=== PATIENT | female | born 1980 | race Caucasian/White ===

== ENCOUNTER 2022-12-28 12:20 | Day surgery (SDC) | payer BC ==
[2022-12-27 14:13] VITALS: BMI 37.1
--- NOTE | 2022-12-28 08:03 | P.GSHP ---
History of Present Illness H&P Date: 12/28/22 CHIEF COMPLAINT: Cholecystitis HISTORY OF PRESENT ILLNESS: The patient is a 42-year-old female who presents with history of epigastric including right upper quadrant abdominal pain. She underwent diagnostic studies for her gallbladder. Separately her clinical picture was consistent with cholecystitis. Now she presents for surgical intervention. PAST MEDICAL HISTORY: Please see list PAST SURGICAL HISTORY: Please see list MEDICATIONS: Please see list ALLERGIES: Please see list SOCIAL HISTORY: Please see list FAMILY HISTORY: Please see list REVIEW OF ORGAN SYSTEMS: CONSTITUTIONAL: No reports of fevers or chills. HEENT: Denies any troubles with the vision or hearing. ENDOCRINE: No reports of hypothyroidism. No diabetes. RESPIRATORY: No recent pneumonias. CARDIOVASCULAR: Denies chest pain or palpitations GI: No blood in stools or constipation. MUSCULOSKELETAL: Has occasional joint pain including back pain. NEURO: No seizure disorders or headaches. No recent stroke. PSYCH: No depression or suicidal ideation. GENITOURINARY: No active blood in urine. No urinary hesitancy. HEMATOLOGIC: No personal or family history of DVTs or pulmonary emboli. SKIN: No skin cancer. PHYSICAL EXAM: VITAL SIGNS: Afebrile vital signs stable GENERAL: Well-developed pleasant in no acute distress. HEENT: No scleral icterus. Extraocular movements grossly intact. Moist buccal mucosa. NECK: Supple without lymphadenopathy. CHEST: Unlabored respirations. Equal bilateral excursions. CARDIOVASCULAR: Regular rate regular rhythm rhythm. Distal 2+ pulses. ABDOMEN: Soft, nondistended. Tender along the epigastrium and right upper quadrant. MUSCULOSKELETAL: No clubbing, cyanosis, or edema. NEURO: Cranial nerves II to XII within normal limits. No focal or lateralizing signs. PSYCH: Alert and oriented to person, place and time. SKIN: Well-perfused good skin turgor. ASSESSMENT: 1. Epigastric and right upper quadrant abdominal pain 2. Chronic cholecystitis 3. Symptomatic gallstones. PLAN: 1. Will need a robotic cholecystectomy possible open. Benefits and risks were described. 2. Heparin for DVT prophylaxis 5000 units. 3. Antibiotic prophylaxis. 4. CBC and CMP on day of procedure 5. Non-narcotic pre and post op pain management reviewed. 6. Indocyanine green for biliary imaging. Past Medical History Past Medical History: Diabetes Mellitus, Hypertension Additional Past Medical History / Comment(s): rt abd pain and bloating,n/v frequently History of Any Multi-Drug Resistant Organisms: None Reported Past Surgical History: Hernia Repair Additional Past Surgical History / Comment(s): umbilical hernia repair Past Anesthesia/Blood Transfusion Reactions: No Reported Reaction Additional Past Anesthesia/Blood Transfusion Reaction / Comment(s): no hx blood transfusion Smoking Status: Current every day smoker - Past Family History Mother Family Medical History: No Reported History Father Family Medical History: Cancer Additional Family Medical History / Comment(s): lung Medications and Allergies Home Medications Medication Instructions Recorded Confirmed Type Dapagliflozin Propanediol [Farxiga] 10 mg PO DAILY 12/27/22 12/27/22 History Ibuprofen 800 mg PO Q8H PRN 12/27/22 12/27/22 History Insulin NPH Hum/Reg Insulin Hm 45 units SQ BID 12/27/22 12/27/22 History [Novolin 70-30 Flexpen] hydroCHLOROthiazide 12.5 mg PO DAILY 12/27/22 12/27/22 History Allergies Allergy/AdvReac Type Severity Reaction Status Date / Time Penicillins Allergy Anaphylaxis Verified 12/27/22 14:04
[~2022-12-28 12:20] MED LIST: ACETAMINOPHEN TAB 500 MG TAB PO PRN; HEPARIN SODIUM,PORCINE/PF 5,000 UNIT/0.5 ML SYRINGE SQ PRN; HYDROmorphone 0.5 MG/0.5 ML SYRINGE IVP PRN; LACTATED RINGERS 1,000 ML IV SCH; MIDAZOLAM 2 MG/2 ML VIAL IV PRN; ONDANSETRON 4 MG/2 ML VIAL IVP PRN; SCOPOLAMINE 1 MG/72 HR PATCH TRANSDERM SCH
[2022-12-28 12:58] LABS: Glucose,Whole Blood 115 mg/dL (70-110)
[2022-12-28 13:04] LABS: Basophils # (A) 0.1 k/uL (0-0.2); Basophils % (A) 1 %; Eosinophils # (A) 0.3 k/uL (0-0.7); Eosinophils % (A) 2 %; HCT 38.4 % (34.0-46.0); HGB 12.5 gm/dL (11.4-16.0); Lymphocytes # (A) 2.9 k/uL (1.0-4.8); Lymphocytes % (A) 28 %; MCH 27.7 pg (25.0-35.0); MCHC 32.5 g/dL (31.0-37.0); MCV 85.3 fL (80.0-100.0); Mean Platelet Volume 7.1; Monocytes # (A) 0.4 k/uL (0-1.0); Monocytes % (A) 4 %; Neutrophils # (A) 6.8 k/uL (1.3-7.7); Neutrophils % (A) 65 %; Platelet Count 556 k/uL (150-450); RDW 13.7 % (11.5-15.5); WBC 10.5 k/uL (3.8-10.6)
[2022-12-28] MEDS ORDERED: DEXAMETHASONE SOD PHOSPHATE 4 MG/ML 1 ML VIAL IVP ONE (13:12)
[2022-12-28 13:14] LABS: Prothrombin Time 10.1 sec (9.0-12.0)
[2022-12-28 13:36] LABS: ALT 24 U/L (4-34); AST 22 U/L (14-36); African American GFR (CKD) >90 (>60 ml/min/1.73 sqM); Albumin 4.4 g/dL (3.5-5.0); Alkaline Phosphatase 73 U/L (38-126); Anion Gap 9 mmol/L; Blood Urea Nitrogen 24 mg/dL (7-17); Carbon Dioxide 25 mmol/L (22-30); Chloride 106 mmol/L (98-107); Glucose 112 mg/dL (74-99); Non-African American GFR(CKD) 90 (>60 ml/min/1.73 sqM); Potassium 4.3 mmol/L (3.5-5.1); Sodium 140 mmol/L (137-145); Total Bilirubin 0.7 mg/dL (0.2-1.3); Total Protein 7.6 g/dL (6.3-8.2)
[2022-12-28] MEDS ORDERED: fentaNYL (PF) 50 MCG/ML 2 ML AMP ONE (14:27)
[2022-12-28] MEDS ORDERED: ROCURONIUM 10 MG/ML (5 ML VIAL) IV ONE (14:27)
[2022-12-28] MEDS ORDERED: GLYCOPYRROLATE 0.2 MG/ML 2 ML VIAL ONE (14:27)
[2022-12-28] MEDS ORDERED: HYDROmorphone (PF) 1 MG/ML ONE (14:27)
[2022-12-28] MEDS ORDERED: LIDOCAINE 2% INJ 20 MG/ML (2 ML VIAL) ONE (14:27)
[2022-12-28] MEDS ORDERED: SUCCINYLCHOLINE CHLORIDE 200 MG/10 ML VIAL IV ONE (14:27)
[2022-12-28] MEDS ORDERED: INDOCYANINE GREEN 25 MG VIAL IV ONE (14:27)
[2022-12-28] MEDS ORDERED: NEOSTIGMINE 1 MG/ML 10 ML VIAL ONE (14:27)
[2022-12-28] MEDS ORDERED: MIDAZOLAM 2 MG/2 ML VIAL ONE (14:27)
[2022-12-28] MEDS ORDERED: PROPOFOL 10 MG/ML 20 ML VIAL IV ONE (14:27)
[2022-12-28] MEDS ORDERED: LIDOCAINE 2%-EPI 1:100,000 20 ML VIAL SQ ONE (15:08)
[2022-12-28] MEDS ORDERED: LACTATED RINGERS 1,000 ML IV ONE (16:40)
[2022-12-28 16:47] VITALS: TEMP 97.1
[2022-12-28] MEDS ORDERED: oxyCODONE-APAP 7.5-325MG 1 EACH TAB PO PRN (16:51)
[2022-12-28 16:59] LABS: Glucose,Whole Blood 233 mg/dL (70-110)
--- NOTE | 2022-12-28 17:02 | P.OP ---
Date of Procedure: 12/28/22 Description of Procedure: SURGEON: EDIE WHITE MD PREOPERATIVE DIAGNOSES: 1. Symptomatic gallstones 2. Right upper quadrant abdominal pain 3. Diabetes type 2, insulin-dependent 4. Morbid obesity due to excess calories, BMI 36.2 5. Hypertensive heart disease 6. Abnormal EKG POSTOPERATIVE DIAGNOSES: 1. Acute on chronic cholecystitis due to cystic duct obstruction 2. Right upper quadrant abdominal pain 3. Diabetes type 2, insulin-dependent 4. Morbid obesity due to excess calories, BMI 36.2 5. Hypertensive heart disease 6. Symptomatic gallstones 7. Pericholecystic peritoneal adhesions 8. Fatty liver disease with hepatomegaly OPERATION: 1. Robotic-assisted da Almita Xi laparoscopic lysis of adhesions over 30 minutes 2. Robotic-assisted da Almita Xi laparoscopic cholecystectomy, multiport with FIREFLY ESTIMATED BLOOD LOSS: 5 mL. SPECIMENS REMOVED: Gallbladder. COMPLICATIONS: None. OPERATIVE FINDINGS: 1. Moderate scarring over entire gallbladder with peritoneal adhesions, pericholecystic with features of chronic cholecystitis 2. Large gallstones over 1 cm with impaction and cystic duct 3. Nonvisualization of the gallbladder with indocyanine green consistent with acute cholecystitis 4. Dome down technique performed for critical view of safety INDICATIONS: The patient is a 42-year-old female who presents with symptomatic gallstones. Robotic assisted laparoscopic approach was described. Benefits and risks of the procedure including but not limited to bleeding, infection, injury to the biliary tree was described. Informed consent was obtained. DESCRIPTION OF PROCEDURE: Patient was brought to the operating room, placed in supine position. After general induction, the abdomen had been prepped and draped in standard sterile fashion. The robotic da Almita XI system was primed. After a timeout protocol was performed, the patient had been prepped and draped in standard sterile fashion. The patient was injected with indocyanine green. A 5 mm 0 degrees laparoscopic trocar entry was performed along the left upper quadrant. The abdomen insufflated to 15 mmHg pressure which was tolerated well. Diagnostic laparoscopy demonstrated no injury to bowel viscera or mesentery. The liver surface was unremarkable. Next, two 8 mm robotic ports were placed along the right upper abdomen. The camera 8-mm port was maintained along the epigastrium. Another 12 mm port was placed along the left upper abdominal wall after exchanging the 5 mm port. Please note that the ports were placed at least 10 to 15 cm away from the target anatomy of the gallbladder. The robot was docked along the left lateral abdomen. The patient was repositioned in reverse Trendelenburg position. Using a grasper for arm 3, a grasper for arm 4, including hook cautery for arm 1, the robotic system was docked and primed as described. Instruments were interchanged by the acute care assistant including hook cautery, Bovie cautery and clip appliers. I had sat at the console. The gallbladder was scarred with peritoneal adhesions. Lysis of adhesions over 30 minutes was performed to free the gallbladder from the surrounding tissues. Next attention was brought to the infundibulum and cystic structures. Impacted large 1 cm gallstone was identified of the neck of the gallbladder. Indocyanine green demonstrated nonvisualization of the gallbladder consistent with acute cholecystitis. Dome down technique was performed from fundus to infundibulum. The infundibulum and cystic duct were dissected free from surrounding tissues. The cystic duct was isolated. FIREFLY was used to identify the cystic artery and cystic structures. A critical view of safety was obtained. Large PLASTIC clips were used throughout the entire case. Using a clip chargeback specialist, 2 clips were placed at the junction of the infundibulum and cystic duct. The cystic duct was divided between clips. Next, the cystic artery was similarly clipped and cauterized. Electro-Bovie cautery was used to remove the gallbladder from the hepatic fossa. Hemostasis was checked and found to be adequate. The robot was undocked. I re-scrubbed into the case. Using a 10 mm Endo Catch bag via the left upper quadrant incision after widening incision for gallbladder filled with large gallstones, the specimen was removed from the abdominal cavity. All pneumoperitoneum instruments were evacuated from the abdominal cavity. The incisions were reapproximated using 4-0 Monocryl in an interrupted subcuticular fashion. Jake King with 0 Vicryl was used to close the left upper quadrant incision. Please note along the trocar sites, local anesthetic was placed as a field block prior to insertion of all instruments. Liquid glue was applied to the skin. At the end of the procedure needle, sponge, and instrument count had been verified correct by the neurosurgical nurse practitioner. The patient was transferred to postanesthesia care unit in stable condition. Intraoperative films were shared with the patient's family. Plan - Discharge Summary Discharge Rx Participant: No New Discharge Prescriptions: New Simethicone [Gas-X] 125 mg PO AC-TID PRN #20 capsule PRN Reason: Pain Acetaminophen Tab [Tylenol Tab] 1,000 mg PO Q6HR PRN #30 tablet PRN Reason: Pain Continue Ibuprofen 800 mg PO Q8H PRN PRN Reason: Pain hydroCHLOROthiazide 12.5 mg PO DAILY Insulin NPH Hum/Reg Insulin Hm [Novolin 70-30 Flexpen] 45 units SQ BID Dapagliflozin Propanediol [Farxiga] 10 mg PO DAILY Discharge Medication List Dapagliflozin Propanediol [Farxiga] 10 mg PO DAILY 12/27/22 [History] Ibuprofen 800 mg PO Q8H PRN 12/27/22 [History] Insulin NPH Hum/Reg Insulin Hm [Novolin 70-30 Flexpen] 45 units SQ BID 12/27/22 [History] hydroCHLOROthiazide 12.5 mg PO DAILY 12/27/22 [History] Acetaminophen Tab [Tylenol Tab] 1,000 mg PO Q6HR PRN #30 tablet 12/28/22 [Rx] Simethicone [Gas-X] 125 mg PO AC-TID PRN #20 capsule 12/28/22 [Rx] Follow up Appointment(s)/Referral(s): Edie White MD [STAFF PHYSICIAN] - 01/02/23 (TELEHEALTH) Patient Instructions/Handouts: *[facility] - Scopalamine Patch Instructions, Laparoscopic Cholecystectomy (DC), *[facility] - Managing Your Pain After Surgery Without Opioids Activity/Diet/Wound Care/Special Instructions: TELEHEALTH - DR WILL CALL YOU BETWEEN 8 am to 8 pm Recommend low-fat diet for the next 2 days. No lifting over 10 pounds in 2 weeks until January 11November shower. No bath tub soaks for two weeks until January 11 Diet as tolerated. Use Tylenol, simethicone and ibuprofen or Aleve scheduled for the next 24-48 hours for best pain relief. Use ice along incisions for today to prevent swelling. Discharge Disposition: HOME SELF-CARE
[2022-12-28 17:50] VITALS: RESP 18
[2022-12-28] MEDS ORDERED: METOCLOPRAMIDE 5 MG/ML 2 ML VIAL ONE (18:04)
[2022-12-28] MEDS ORDERED: METOCLOPRAMIDE 5 MG/ML 2 ML VIAL IVP ONE (18:09)
[2022-12-28 18:38] VITALS: BP 137/75; PULSE 89
--- NOTE | 2023-01-03 19:41 | P.PN ---
Progress Note - Text Progress Note Date: 01/03/23 Patient contacted. She reports doing much better since her gallbladder removal. Pathology report demonstrates gangrene of the gallbladder multiple gallstones. She reports appropriate left upper quadrant incisional pain. Overall doing well. Follow-up telehealth one week.
== END 2022-12-28 18:54 | disposition home or self-care (01) ==
LOC: OR 12:20
PROVIDERS: ATTEND Surgery Plastic and Reconstructive Surgery
DX: K80.12 Calculus of gallbladder with acute and chronic cholecystitis without obstruction (principal); K66.0 Peritoneal adhesions (postprocedural) (postinfection); E11.9 Type 2 diabetes mellitus without complications; I11.9 Hypertensive heart disease without heart failure; E66.01 Morbid (severe) obesity due to excess calories; K76.0 Fatty (change of) liver, not elsewhere classified; F17.200 Nicotine dependence, unspecified, uncomplicated; Z68.36 Body mass index [BMI] 36.0-36.9, adult; Z79.84 Long term (current) use of oral hypoglycemic drugs; Z79.4 Long term (current) use of insulin; Z88.0 Allergy status to penicillin
CPT/HCPCS: 47562; S2900; 80053; 81025; 85025; 85610; 88304